=== PATIENT | female | born 1945 | race Caucasian/White ===

== ENCOUNTER 2017-01-04 12:22 | Inpatient (IN) | payer OTHER, MEDICARE ==
[~2017-01-04] VITALS: Ht 165.1 cm; Wt 72.9 kg
[~2017-01-04 12:22] MED LIST: ASPIRIN81 MG PO; LIPITOR10 MG PO; LISINOPRIL5 MG PO; PLAVIX75 MG PO; PROTONIX40 MG PO
[2017-01-04 14:05] LABS: BASOPHILS 0.1 % (0-2); EOSINOPHILS 0.6 % (0-7); HEMOGLOBIN 8.1 g/dL (12-16); IMMATURE GRANULOCYTES 0.1 % (0-5); LYMPHOCYTES 13.6 % (15-50); MCH 23.1 pg (26.0-34.0); MCV 77.1 fL (80.0-100.0); MEAN PLATELET VOLUME 9.4 fL (7.4-10.4); MONOCYTES 5.1 % (2-11); NEUTROPHILS 80.5 % (40-80); PLATELET COUNT 233 10x3/uL (130-400); RDW 15.7 % (11.5-14.5); WBC 8.1 10x3/uL (4.8-10.8)
[2017-01-04 14:18] LABS: ALBUMIN 3.8 g/dL (3.4-5.0); ALKALINE PHOSPHATASE 66 U/L (46-116); ALT (SGPT) 17 U/L (10-68); BILIRUBIN - TOTAL 0.35 mg/dL (0.2-1.3); CALC OSMOLALITY 266 mosm/kg (275-300); CALCIUM 8.6 mg/dL (8.5-10.1); CARBON DIOXIDE 29.5 mmol/L (21.0-32.0); CHLORIDE - SERUM 99 mmol/L (98-107); CREATININE - SERUM 0.6 mg/dL (0.6-1.3); GLUCOSE 97 mg/dL (74-106); POTASSIUM - SERUM 3.7 mmol/L (3.5-5.1); PROTEIN - SERUM 7.1 g/dL (6.4-8.2); SODIUM 134 mmol/L (136-145); UREA NITROGEN 10 mg/dL (7-18); eGFR NON AFRICAN AMERICAN > 90 mL/min (90-120)
--- NOTE | 2017-01-04 15:00 | NUR ---
PT REC'D TO ROOM VIA STRETCHER. TRANSFERED OVER TO BED X3 ASSIST FROM STAFF. REPOSITIONED UP IN BED. AAOX4. RATING CURRENT PAIN IN L LEG 5/10. ASKING FOR PAIN MEDICATION. STATED SHE HAD JUST RECEIVED SOME IN THE ER, BUT SHE COULD HAVE SOME IN AN HOUR. PT STATES SHE UNDERSTANDS. PIV TO R FA FREE OF REDNESS AND SWELLING. PATENT. 1CM SKIN TEAR TO R FA. NO REDNESS OR SWELLING NOTED. SKIN OTHERWISE CDI. REGULAR HEART RATE AND RHYTHM. LUNG SOUNDS CLEAR AND EQUAL BILAT. FAMILY AT BEDSIDE. BED LOW, CALLL LIGHT IN REACH, DENEIS NEEDS. CPOC.
[2017-01-04 15:45] VITALS: Ht 165.1 cm; Wt 72.9 kg
--- NOTE | 2017-01-04 16:00 | NUR ---
16FR PETERSON CATHETER INSERTED AT THIS TIME USING STERILE TECHNIQUE. IMMEDIATE RETURN OF 300CC'S OF CLEAR YELLOW URINE. SPECIMEN OBTAINED AND SENT TO LAB. L ARM PLACED IN SLING. INCENTIVE SPIROMETER TAUGHT AT THIS TIME. PT ABLE TO RETURN DEMONSTRATION AND PULL 1250. BED LOW, CALL LIGHT IN REACH, DENIES NEEDS. CPOC.
[2017-01-04 16:25] LABS: APPEARANCE CLEAR (CLEAR); BILIRUBIN NEGATIVE (NEGATIVE); COLOR YELLOW (YELLOW); GLUCOSE NEGATIVE (NEGATIVE); KETONE SMALL mg/dL (NEGATIVE); LEUKOCYTE ESTERASE NEGATIVE (NEGATIVE); NITRITE NEGATIVE (NEGATIVE); PH 5.5 (5.0-6.0); PROTEIN NEGATIVE (NEGATIVE); SPECIFIC GRAVITY 1.015 (1.005-1.020); UROBILINOGEN NORMAL (NORMAL)
[2017-01-04 20:00] VITALS: BP 113/48
--- NOTE | 2017-01-04 22:46 | NUR ---
REC'D LYING IN BED. NO DISTRESS NOTED. ALERT AND ORIENTED X4. REPORTED PAIN OF 3/10. DENIED FURTHER NEEDS AT THIS TIME. INSTRUCTED TO CALL IF NEEDED ANYTHING. VERBALIZED UNDERSTANDING. WILL CONT TO MONITOR. IS AT BEDSIDE.
[2017-01-05] VITALS (16 sets, daily range): BP systolic 101–139; BP diastolic 36–78
[2017-01-05 05:16] LABS: BASOPHILS 0.2 % (0-2); EOSINOPHILS 2.3 % (0-7); HEMATOCRIT 22.6 % (36.0-48.0); IMMATURE GRANULOCYTES 0.2 % (0-5); LYMPHOCYTES 15.2 % (15-50); MCH 22.7 pg (26.0-34.0); MCHC 29.6 g/dL (31.0-37.0); MCV 76.6 fL (80.0-100.0); MEAN PLATELET VOLUME 9.4 fL (7.4-10.4); MONOCYTES 4.6 % (2-11); NEUTROPHILS 77.5 % (40-80); PLATELET COUNT 194 10x3/uL (130-400); RBC 2.95 10x6/uL (4.00-5.40); RDW 15.8 % (11.5-14.5); WBC 6.6 10x3/uL (4.8-10.8)
[2017-01-05 05:18] LABS: HEMOGLOBIN 6.7 g/dL (12-16)
[2017-01-05 05:40] LABS: % SATURATION 12 % (15-55); IRON 45 ug/dl (35-150); TOTAL IRON BIND CAPACITY 370 ug/dl (260-445); UNSAT IRON BIND CAPACITY 325 ug/dl (150-375)
[2017-01-05 05:53] LABS: CALC OSMOLALITY 266 mosm/kg (275-300); CARBON DIOXIDE 25.2 mmol/L (21.0-32.0); CHLORIDE - SERUM 102 mmol/L (98-107); CREATININE - SERUM 0.5 mg/dL (0.6-1.3); FERRITIN 11 ng/mL (3-244); GLUCOSE 110 mg/dL (74-106); SODIUM 134 mmol/L (136-145); UREA NITROGEN 7 mg/dL (7-18); eGFR NON AFRICAN AMERICAN > 90 mL/min (90-120)
--- NOTE | 2017-01-05 07:00 | NUR ---
PT REC'D FROM JOSE GUADALUPE THAKKAR. RESTING IN BED WITH EYES CLOSED. EASILY AROUSED. AAOX4. RATING CURRENT PAIN TO L ARM AND L LEG 3/10. DENIES NEED FOR PAIN MEDICATION AT THIS TIME. NO BRUISING NOTED TO L SIDE OF BODY. L ARM IN SLING. PETERSON CATHETER IN PLACE DRAINING CLEAR YELLOW URINE TO GRAVITY. PIV TO R FA FREE OF REDNESS AND SWELLING. BED LOW, CALL LIGHT IN REACH, DENIES NEEDS. CPOC.
--- NOTE | 2017-01-05 08:15 | NUR ---
CONSENTS TO RECEIVE BLOOD AND BLOOD PRODUCTS OBTAINED AT THIS TIME.
--- NOTE | 2017-01-05 10:30 | NUR ---
1ST UNIT OF PRBC'S STARTED PER ORDERS TO PIV IN R FA. VSS. WILL MONITOR FOR FIRST 15 MINUTES.
--- NOTE | 2017-01-05 10:52 | NUR ---
PATIENT ALERT IN BED. NO SIGNS OF DISTRESS NOTED. SIDE RAILS UP X2. BED IN LOW POSITION. CALL LIGHT IN REACH.
--- NOTE | 2017-01-05 11:52 | NUR ---
PT RESTING IN BED WITH EYES CLOSED. DAUGHTER AT BEDSIDE. VSS. 1ST UNIT OF PRBC'S INFUSING AT THIS TIME. BED LOW, CALL LIGHT IN REACH, DENIES NEEDS. CPOC.
--- NOTE | 2017-01-05 14:00 | NUR ---
FIRST UNIT OF PRBC'S FINISHED. SWITCHED TO NORMAL SALINE TO FLUSH BLOOD FROM REST OF TUBING. VSS. BED LOW, CALL LIGHT IN REACH, DENIES NEEDS. CPOC.
--- NOTE | 2017-01-05 19:37 | NUR ---
PT IS LYING IN BED, BLOOD IS COMPLETE AND FLUSH IS RUNNING, PT EYES ARE CLOSED EVEN RISE AND FALL OF CHESTNO SIGNS OF DISCOMFORTNO NEEDS AT THIS TIMEBED IN LOW POSITION CALL LIGHT IN REACH
[2017-01-06] VITALS (22 sets, daily range): BP systolic 131–187; BP diastolic 47–87
--- NOTE | 2017-01-06 01:45 | NUR ---
NOTIFIED BY GUEST AT PATIENT'S BEDSIDE THAT THE PT WAS CONCERNED ABOUT HER IV. NO SWELLING OR REDNESS NOTED, IV IS PATENT, AND THE PT STATED SHE IS NOT HAVING PAIN AT THE SITE. I ENCOURAGED THE PATIENT TO CALL IF SHE HAS FUTHER NEEDS OR ANY OTHER CONCERNS.
--- NOTE | 2017-01-06 07:07 | NUR ---
REPORT RECEIVED FROM CUSHION FORMER NURSE. CALL LIGHT IN REACH.
--- NOTE | 2017-01-06 08:30 | NUR ---
ASSESSMENT COMPLETED. BED ALARM ON. IN ROOM. CALL LIGHT IN REACH. WILL CONTINUE WITH PLAN OF CARE.
--- NOTE | 2017-01-06 09:51 | NUR ---
1ST UNIT PRBC INFUSION STARTED AT 100 CC/HR VIA PUMP. VSS. FAMILY AT BEDSIDE.
[2017-01-06 09:55] LABS: ALBUMIN 2.9 g/dL (3.4-5.0); ALKALINE PHOSPHATASE 56 U/L (46-116); ALT (SGPT) 12 U/L (10-68); CALC OSMOLALITY 270 mosm/kg (275-300); CHLORIDE - SERUM 103 mmol/L (98-107); CREATININE - SERUM 0.5 mg/dL (0.6-1.3); GLUCOSE 89 mg/dL (74-106); POTASSIUM - SERUM 3.3 mmol/L (3.5-5.1); SODIUM 137 mmol/L (136-145); UREA NITROGEN 8 mg/dL (7-18); eGFR NON AFRICAN AMERICAN > 90 mL/min (90-120)
--- NOTE | 2017-01-06 10:14 | NUR ---
Patient Name: DORA LARA Admission Status: ER Accout number: [id number] Admission Date: 01-04-2017 : 1945 Admission Diagnosis: Attending: SADAF Current LOS: 2 Anticipated DC Date: Planned Disposition: Home Primary Insurance: [employer] PPO Discharge Planning Comments: CM met with patient to assess discharge planning needs. Patient lives independently with her friend, Tobin Connor. Tobin will be the one to drive the patient home at discharge. Patient is currently off work from open heart surgery that she had in Mar 2016. Patient would like to go to inpatient rehab after surgery. Patient has a bed side commode and a wheelchair at home. CM will continue to follow and assist as needed. PCP: [facility] on [address] Tobin Connor (friend) Dora Palafox (daughter) [phone] Evp: Savita Méndez * Is the patient Alert and Oriented? Yes 0 * How many steps to enter\exit or inside your home? 0 0 * PCP BEN 0 * [facility] 0 * Preadmission Environment Home with Family 0 * ADLs Independent 0 * Equipment Bedside Commode Wheelchair 0 * List name and contact numbers for known caregivers / representatives who currently or will assist patient after discharge: OTBIN CONNOR (FRIEND) DORA PALAFOX (DAUGHTER) 0 * Community resources currently utilized None 0 * Additional services required to return to the preadmission environment? No 0 * Can the patient safely return to the preadmission environment? Yes 0 * Has this patient been hospitalized within the prior 30 days at any hospital? No 0 Grand Total: 0
[2017-01-06 10:16] LABS: BASOPHILS 0.1 % (0-2); EOSINOPHILS 3.8 % (0-7); HEMATOCRIT 32.1 % (36.0-48.0); IMMATURE GRANULOCYTES 0.1 % (0-5); LYMPHOCYTES 18.3 % (15-50); MCH 25.1 pg (26.0-34.0); MCHC 31.2 g/dL (31.0-37.0); MCV 80.5 fL (80.0-100.0); MEAN PLATELET VOLUME 9.8 fL (7.4-10.4); NEUTROPHILS 71.7 % (40-80); PLATELET COUNT 176 10x3/uL (130-400); RBC 3.99 10x6/uL (4.00-5.40); RDW 16.8 % (11.5-14.5); WBC 7.9 10x3/uL (4.8-10.8)
--- NOTE | 2017-01-06 10:32 | NUR ---
REQUESTING PAIN MEDS. MORPHINE 2 MG SIVP. IN ROOM. BED ALARM ON. CALL LIGHT IN REACH.
--- NOTE | 2017-01-06 10:47 | NUR ---
C/O ITCHING. BENADRYL 25 MG SIVP. CALL LIGHT IN REACH.
--- NOTE | 2017-01-06 12:36 | NUR ---
DR. CONTRERAS IN ROOM TO SEE PATIENT AT THIS TIME.
--- NOTE | 2017-01-06 13:10 | NUR ---
PRBC UNIT 1 COMPLETED AND NOW FLUSHING. WILL START 2ND UNIT HERE SHORTLY.
--- NOTE | 2017-01-06 14:25 | NUR ---
C/O PAIN OF 7. MORPHINE SIVP. FAMILY IN ROOM. CALL LIGHT IN REACH.
--- NOTE | 2017-01-06 14:50 | NUR ---
2ND UNIT OF PRBC INITIATED PER ROGERIO JOHNSON.
--- NOTE | 2017-01-06 15:57 | NUR ---
RESTING WITH EYES CLOSED. RESP EVEN AND UNLABORED. CALL LIGHT IN REACH.
--- NOTE | 2017-01-06 16:15 | NUR ---
Rehab Prescreening Consult recieved and the chart has been reviewed. This patient is scheduled for surgery today. Her insurance is [employer] which will require a preauthorization for rehab. Post op she will need a PT and an OT eval to submit to [facility] for their review and approval. [facility] has requested this clinical information be faxed to them within 48 hrs or no later than 01/08/17. Ref# [id number] This information has been given to the CM Nica Méndez. Coco Villatoro RN Clinical Liaison, Rehab
--- NOTE | 2017-01-06 18:33 | NUR ---
LASIX AND BENADRYL IVP. NO CHANGES IN INITIAL ASSESSMENT. BED ALARM ON. FAMILY AT BEDSIDE. CALL LIGHT IN REACH. WILL CONTINUE WITH PLAN OF CARE.
--- NOTE | 2017-01-06 19:45 | NUR ---
DR DORANTES CAME TO PT'S ROOM AND TOLD PT'S THAT SURGERY HAS BEEN POSTPONED UNTIL 01/07/17. TOLD PT SHE CAN EAT UNTIL MIDNIGHT AND THEN NPO UNTIL AFTER SURGERY. PT BED IN LOW POSITION CALL LIGHT WITHIN REACH
--- NOTE | 2017-01-07 02:00 | NUR ---
PT IN BED WITH NO DISTRESS. RESPIRATIONS EVEN AND UNLABORED. SIDE RAILS X 2. BED LOW. CALL LIGHT IN REACH.
[2017-01-07 04:00] VITALS: BP 141/59
--- NOTE | 2017-01-07 07:15 | NUR ---
REPORT RECEIVED FROM STATION AGENT NURSE. CALL LIGHT IN REACH.
[2017-01-07 08:17] LABS: FOLATE (FOLIC ACID) - SERUM 7.9 ng/mL (>3.0)
[2017-01-07 08:42] VITALS: BP 182/62
[2017-01-07 09:00] LABS: MCH 26.2 pg (26.0-34.0); MCHC 32.2 g/dL (31.0-37.0); MCV 81.3 fL (80.0-100.0); MEAN PLATELET VOLUME 9.4 fL (7.4-10.4); RDW 16.6 % (11.5-14.5); WBC 7.7 10x3/uL (4.8-10.8)
[2017-01-07 09:06] LABS: HEMATOCRIT 40.1 % (36.0-48.0); HEMOGLOBIN 12.9 g/dL (12-16); RBC 4.93 10x6/uL (4.00-5.40)
[2017-01-07 09:09] LABS: CALC OSMOLALITY 269 mosm/kg (275-300); CALCIUM 8.1 mg/dL (8.5-10.1); CARBON DIOXIDE 25.7 mmol/L (21.0-32.0); CHLORIDE - SERUM 102 mmol/L (98-107); CREATININE - SERUM 0.6 mg/dL (0.6-1.3); GLUCOSE 81 mg/dL (74-106); POTASSIUM - SERUM 3.2 mmol/L (3.5-5.1); SODIUM 136 mmol/L (136-145); eGFR NON AFRICAN AMERICAN > 90 mL/min (90-120)
[2017-01-07 09:12] LABS: UREA NITROGEN 11 mg/dL (7-18)
--- NOTE | 2017-01-07 09:21 | NUR ---
ASSESSMENT COMPLETED. REQUESTING MORE PAIN MEDS. MORPHINE 4 MG SIVP. FAMILY IN ROOM. CALL LIGHT IN REACH. WILL CONTINUE WITH PLAN OF CARE.
--- NOTE | 2017-01-07 11:15 | NUR ---
DAUGHTER STATES THAT IF THE PATIENT DOES NOT HAVE SURGERY WITHIN THE NEXT HOUR, SHE WANTS TO TAKE HER MOTHER TO ANOTHER HOSPITAL. SPOKE WITH SECONDARY TEACHER WHOM SPOKE WITH CRYSTAL,RN, MORGUE ATTENDANT. CRYSTAL CALLED AND SPOKE WITH DAUGHTER.
--- NOTE | 2017-01-07 11:20 | NUR ---
PETERSON CATH CARE PER ROOMING HOUSE KEEPER.
--- NOTE | 2017-01-07 11:42 | NUR ---
PREOP MEDS ADMINISTERED PER ROGERIO OLIVO.
--- NOTE | 2017-01-07 11:43 | NUR ---
PRE-OP MEDICATIONS GIVEN TO PATIENT, REPOSITIONED FOR COMFORT. CALL IN REACH.
--- NOTE | 2017-01-07 12:05 | NUR ---
TO OR VIA BED
--- NOTE | 2017-01-07 14:49 | NUR ---
STILL IN OR AT THIS TIME.
--- NOTE | 2017-01-07 16:55 | NUR ---
IN RECOVERY AT THIS TIME.
--- NOTE | 2017-01-07 17:46 | NUR ---
STARTED NEW IV RIGHT WRIST 20 GAUGE TO INFUSE 0.9 % NS AND 2U PRBC'S. INFUSION STARTED AT 1730. SEE TRANSFUSION SHEET FOR VITALS.
[2017-01-07 18:07] VITALS: BP 151/59
--- NOTE | 2017-01-07 18:10 | NUR ---
RECIEVED FROM PACU PER BED. IMMOBLIZER NOTED TO LEFT ARM/SHOULDER REGION. BLOOD INFUSING TO RIGHT HAND WITH LR INFUSING KVO TO RIGHT FOREARM. PETERSON NOTED TO DRAINAGE OF LIGHT TREVIN, DRESSING NOTED TO LEFT SHOULDER CLEAN DRY AND INTACT. SCD APPLIED TO BILAT LOWER LEGS AND ON. CALL LIGHT IN REACH. FAMILY AT BEDSIDE
--- NOTE | 2017-01-07 19:27 | NUR ---
PT IS LYING IN BED VISITING W/ SPOUSE, STATED PAIN LEVEL IS AT 10 IN LEG, NO ORDERS FOR PAIN MANAGEMENT IN EMAR [address] DR DORANTES, BED IN LOW POSITION CALL LIGHT IN REACH
--- NOTE | 2017-01-08 02:00 | NUR ---
PT IN BED WITH NO DISTRESS. RESPIRATIONS EVEN AND UNLABORED. SIDE RAILS X 2. BED LOW. CALL LIGHT IN REACH.
[2017-01-08 04:00] VITALS: BP 161/60
[2017-01-08 05:39] LABS: BASOPHILS 0 % (0-2); EOSINOPHILS 0 % (0-7); HEMATOCRIT 39.4 % (36.0-48.0); HEMOGLOBIN 13.3 g/dL (12-16); IMMATURE GRANULOCYTES 0.1 % (0-5); LYMPHOCYTES 11.9 % (15-50); MCH 27.4 pg (26.0-34.0); MCHC 33.8 g/dL (31.0-37.0); MCV 81.2 fL (80.0-100.0); MEAN PLATELET VOLUME 9.6 fL (7.4-10.4); MONOCYTES 9.6 % (2-11); NEUTROPHILS 78.4 % (40-80); PLATELET COUNT 126 10x3/uL (130-400); RBC 4.85 10x6/uL (4.00-5.40); RDW 16.1 % (11.5-14.5); WBC 6.8 10x3/uL (4.8-10.8)
[2017-01-08 05:57] LABS: ALKALINE PHOSPHATASE 46 U/L (46-116); ALT (SGPT) 10 U/L (10-68); CALC OSMOLALITY 277 mosm/kg (275-300); CALCIUM 8.2 mg/dL (8.5-10.1); CARBON DIOXIDE 22.1 mmol/L (21.0-32.0); CHLORIDE - SERUM 104 mmol/L (98-107); CREATININE - SERUM 0.5 mg/dL (0.6-1.3); GLUCOSE 119 mg/dL (74-106); SODIUM 139 mmol/L (136-145); UREA NITROGEN 9 mg/dL (7-18); eGFR NON AFRICAN AMERICAN > 90 mL/min (90-120)
[2017-01-08 06:12] LABS: POTASSIUM - SERUM 3.8 mmol/L (3.5-5.1)
--- NOTE | 2017-01-08 07:20 | NUR ---
REPORT RECEIVED FROM GARMENT PARTS CUTTER HAND NURSE. CALL LIGHT IN REACH.
--- NOTE | 2017-01-08 07:30 | NUR ---
IV TO RIGHT ARM WITH SWELLING AND REDNESS. DC'D WITH TIP INTACT. RESITED TO RIGHT FOREARM WITH 22 GA X1 STICK.
--- NOTE | 2017-01-08 07:50 | NUR ---
REPORT RECEIVED FROM ILLUSIONIST NURSE. CALL LIGHT IN REACH.
[2017-01-08 08:38] VITALS: BP 108/59
--- NOTE | 2017-01-08 09:15 | NUR ---
PATIENT ALERT IN HIGH SMITH POSITION. NO SIGNS OF DISTRESS NOTED. GUEST AT BEDSIDE. SIDE RAILS UP X2. BED IN LOW POSITION. CALL LIGHT IN REACH.
--- NOTE | 2017-01-08 09:33 | NUR ---
ASSESSMENT COMPLETED. TORADOL IVP PER C/O PAIN OF 10. ALSO INSTRUCTED PATIENTTO USE BAKERY DECORATOR WHEN IN PAIN. VERBALIZED UNDERSTANDING. IRON PILL PO. IV TUBING CHANGED PER HOSPITAL POLICY. ICE PACKS FILLED AND PLACED TO LEFT SHOULDER AND LEFT HIP. SCD TO RLE. BED ALARM ON. O2 TAKEN OFF AND O2 SAT WAS 95% ON ROOM AIR 10 MINUTES AFTERWARDS. WAITING ON PHYSICAL THERAPY. CALL LIGHT IN REACH. WILL CONTINUE WITH PLAN OF CARE.
--- NOTE | 2017-01-08 10:44 | NUR ---
STATES HER PAIN IS NOW DOWN TO A 1. CALL LIGHT IN REACH.
--- NOTE | 2017-01-08 12:07 | NUR ---
WAS REQUESTING BENADRYL BUT NOW WOULD LIKE TO WAIT. IN CHAIR PER PT. TOLERATING WELL. CALL LIGHT IN REACH.
--- NOTE | 2017-01-08 12:46 | NUR ---
ZOFRAN 4 MG SIVP. WILL GIVE MIRALAX AND COLACE AFTER NAUSEA SUBSIDES. WILL GIVE SUPPOSITORY AFTER PATIENT GETS BACK IN BED.
[2017-01-08 12:57] VITALS: BP 128/67
--- NOTE | 2017-01-08 14:05 | NUR ---
STILL WAITING FOR PATIENT TO AGREE WITH SUPPOSITORY AND LAXATIVES.
--- NOTE | 2017-01-08 15:22 | NUR ---
Rehab Note- The patient is post op day #1. She has had her OT eval completed awaiting PT eval to send to [facility] for [facility] for acutte rehab stay. Will continue ot follow the patient at this time. Alma Delia Garcia RN Clinical Liaison, [facility] Rehab
[2017-01-08 16:20] VITALS: BP 92/57
--- NOTE | 2017-01-08 16:22 | NUR ---
MIRALAX AND COLACE PO. DULCOLAX SUPPOSITORY. PLACED ON BEDPAN WITH ASSISTANCE FROM NURSE KETTLE TENDER. CALL LIGHT IN REACH.
--- NOTE | 2017-01-08 16:24 | NUR ---
Rehab Note- Faxed clinicals to [facility] at [phone]. Will await for determination on an acute rehab stay authorization. Will continue to follow the patient at this time. Thank you for this referral! Alma Delia Garcia RN Clinical Liaison, [facility] Rehab
--- NOTE | 2017-01-08 18:07 | NUR ---
STILL NO BOWEL MOVEMENT AFTER SUPPOSITORY. WILL GIVE WARM PRUNE JUICE AND SPRITE. REPOSITIONED FOR COMFORT. ICE TO SHOULDER AND HIP. NO OTHER CHANGES IN INITIAL ASSESSMENT. SCD TO RLE. BED ALARM ON. CALL LIGHT IN REACH. WILL CONTINUE WITH PLAN OF CARE.
--- NOTE | 2017-01-08 19:11 | NUR ---
STATES SHE SPIT UP SOME BLOOD. LOOKED AT [facility] AND THERE WERE 2 SPECKS OF BLOOD ON IT.
[2017-01-08 20:00] VITALS: BP 120/60
[2017-01-09] VITALS: BP 131/74
--- NOTE | 2017-01-09 02:00 | NUR ---
PT RESTING WITH EYES CLOSED AND NO VISIBLE SIGNS OF DISTRESS. BED IN LOWEST POSITION AND CALL LIGHT WITHIN REACH.
[2017-01-09 04:00] VITALS: BP 115/57
[2017-01-09 05:57] LABS: BASOPHILS 0.1 % (0-2); HEMATOCRIT 40.6 % (36.0-48.0); HEMOGLOBIN 13.4 g/dL (12-16); IMMATURE GRANULOCYTES 0.1 % (0-5); LYMPHOCYTES 16.9 % (15-50); MCH 27.2 pg (26.0-34.0); MCV 82.4 fL (80.0-100.0); MEAN PLATELET VOLUME 10.1 fL (7.4-10.4); MONOCYTES 7.1 % (2-11); NEUTROPHILS 70.8 % (40-80); PLATELET COUNT 145 10x3/uL (130-400); RBC 4.93 10x6/uL (4.00-5.40); RDW 17.2 % (11.5-14.5); WBC 7.4 10x3/uL (4.8-10.8)
[2017-01-09 06:19] LABS: ALBUMIN 2.2 g/dL (3.4-5.0); ALKALINE PHOSPHATASE 55 U/L (46-116); ALT (SGPT) 12 U/L (10-68); BILIRUBIN - TOTAL 1.03 mg/dL (0.2-1.3); CALCIUM 7.9 mg/dL (8.5-10.1); CARBON DIOXIDE 27.5 mmol/L (21.0-32.0); CHLORIDE - SERUM 101 mmol/L (98-107); CREATININE - SERUM 0.5 mg/dL (0.6-1.3); GLUCOSE 101 mg/dL (74-106); POTASSIUM - SERUM 3.6 mmol/L (3.5-5.1); PROTEIN - SERUM 5.8 g/dL (6.4-8.2); SODIUM 136 mmol/L (136-145); eGFR NON AFRICAN AMERICAN > 90 mL/min (90-120)
[2017-01-09 06:20] LABS: CALC OSMOLALITY 271 mosm/kg (275-300); UREA NITROGEN 12 mg/dL (7-18)
--- NOTE | 2017-01-09 08:00 | NUR ---
LYING IN BED,WITHOUT DISTRESS.DENIES NEEDS.CALL LIGHT IN REACH
[2017-01-09] MEDS ORDERED: ELIQUIS2.5 MG PO (08:17)
[2017-01-09 08:26] VITALS: BP 115/55
[2017-01-09 12:57] VITALS: BP 113/70
[2017-01-09 16:11] VITALS: BP 105/51
--- NOTE | 2017-01-09 19:15 | NUR ---
PT IS LYING IN BED VISITING WITH FAMILY, PT STATED THAT LAST NIGHT SHE FELT IF SHE HAD A PABIC ATTACK, WAS UNABLE TO BREATHE AND HAD LOST CALL LIGHT, REINFORCED THAT I WILL CHECK ON HER MORE OFTEN TO MAKE SURE SHE FELT COMFORTABLE AND WILL LEAVE DOOR OPEN. PT BED IN LOW POSITION, CALL LIGHT IN REACH
[2017-01-09 20:00] VITALS: BP 121/46; BP 123/73
[2017-01-10] VITALS: BP 158/68
--- NOTE | 2017-01-10 01:42 | NUR ---
PT SLEEPING. RESP EVEN, UNLABORED. CROZE CUTTER FOR PAIN CONTROL. ARM IN SLING/IMMOBILIZER. CONTINUE LIEUTENANT FIRE FIGHTER'S PLAN OF CARE.
[2017-01-10 04:00] VITALS: BP 123/58
[2017-01-10 06:43] LABS: BASOPHILS 0.1 % (0-2); EOSINOPHILS 5.9 % (0-7); HEMATOCRIT 40.9 % (36.0-48.0); HEMOGLOBIN 13.3 g/dL (12-16); IMMATURE GRANULOCYTES 0.1 % (0-5); LYMPHOCYTES 21.7 % (15-50); MCH 27.4 pg (26.0-34.0); MCHC 32.5 g/dL (31.0-37.0); MCV 84.2 fL (80.0-100.0); MONOCYTES 7.5 % (2-11); NEUTROPHILS 64.7 % (40-80); PLATELET COUNT 150 10x3/uL (130-400); RBC 4.86 10x6/uL (4.00-5.40); WBC 6.8 10x3/uL (4.8-10.8)
[2017-01-10 07:05] LABS: ALBUMIN 2.1 g/dL (3.4-5.0); ALKALINE PHOSPHATASE 56 U/L (46-116); ALT (SGPT) 12 U/L (10-68); BILIRUBIN - TOTAL 0.89 mg/dL (0.2-1.3); CALC OSMOLALITY 268 mosm/kg (275-300); CALCIUM 8.2 mg/dL (8.5-10.1); CARBON DIOXIDE 29.7 mmol/L (21.0-32.0); CHLORIDE - SERUM 101 mmol/L (98-107); CREATININE - SERUM 0.5 mg/dL (0.6-1.3); GLUCOSE 95 mg/dL (74-106); POTASSIUM - SERUM 3.7 mmol/L (3.5-5.1); PROTEIN - SERUM 5.8 g/dL (6.4-8.2); SODIUM 135 mmol/L (136-145); UREA NITROGEN 9 mg/dL (7-18); eGFR NON AFRICAN AMERICAN > 90 mL/min (90-120)
[2017-01-10 08:54] VITALS: BP 159/78
--- NOTE | 2017-01-10 09:11 | NUR ---
SCHEDULED MEDICATIONS ADMINISTERED AT THIS TIME. ASSESSMENT PERFORMED PER FLOWSHEET. SCD'S AND BED ALARM ON. PETERSON D/C WITH CATH TIP INTACT AND MARKING MACHINE OPERATOR D/C. DENIES FURTHER NEEDS. CALL LIGHT IN REACH. RESPIRATIONS EVEN AND NON LABORED. WILL CONTINUE WITH PLAN OF CARE.
--- NOTE | 2017-01-10 10:13 | NUR ---
RECEIVED APPROVAL FOR IN PATIENT REHAB TODAY, PATIENT WILL BE DISCHARGING TO [facility] LATER TODAY. GATO MOCTEZUMA () NOTIFIED.
--- NOTE | 2017-01-10 10:47 | NUR ---
Recieved a fax from Deedee Michaels with [facility]. This patient is authorized for IRF 7 days 01/10/17 thru 01/16/17 Auth# [id number]. Clinical U/D due on 01/17/17 to Christianne Doty RN X [phone] . She will be accepted today to the IRF. The CM Sharon Agarwal RN has been made aware. Coco Villatoro RN Clinical Liaison, Rehab
--- NOTE | 2017-01-10 11:30 | NUR ---
UP IN CHAIR AT THIS TIME. PT TO D/C TO INPATIENT REHAB TODAY PER ORDER.
[2017-01-10] MEDS ORDERED: MIRALAX17 GM PO (11:55)
[2017-01-10] MEDS ORDERED: COLACE100 MG PO (12:00)
[2017-01-10] MEDS ORDERED: ONDANSETRON4 MG/2 M3 IV (12:00)
[2017-01-10] MEDS ORDERED: PROTONIX40 MG PO (12:00)
[2017-01-10] MEDS ORDERED: FERROUS SULFAT325 MG PO (12:03)
[2017-01-10] MEDS ORDERED: BENADRYL INJ50 MG/ML IV (12:03)
[2017-01-10 13:03] VITALS: BP 97/59
--- NOTE | 2017-01-10 15:07 | NUR ---
This patient has [employer] MCR listed as her secondary insurance on her face sheet. Called Patrick at [facility] to see if a preauth was required for IRF if the primary [employer] had authorized the patient for IRF. Patrick says a preauth is required even if [employer] is the secondary insurance. Called Ursula with [employer] and initiated a preauth for IRF Ref# [id number]. Spoke to the patient with Nica Méndez RN CM present, explained the need for a second auth with [employer] and a descision would probably not be made before Friday. The patient states she does not want [employer] notified or billed for her rehab stay because she is in the process of droping them. She says she plans to continue working and does not want to be paying for Medicare too. She understands [employer] will be her only payor source and there could possibly be a co-pay. This was all discussed in the presence of the patient, myself and the CM Nica Méndez. I called Keturah Castañeda director of business, and Stephanie Armas rehab PD and made them aware of the patient's choice. Coco Villatoro RN Clinical Liaison, Rehab choice.
--- NOTE | 2017-01-10 15:49 | NUR ---
PRN PERCOCET ADMINISTERED FOR PAIN 6/10 AT THIS TIME.
--- NOTE | 2017-01-10 16:45 | NUR ---
DRESSING TO LEFT SHOULDER AND LEFT HIP CHANGED AT THIS TIME USING STERILE TECNIQUE. PT TOLERATED WITHOUT COMPLAINTS. CALL LIGHT IN REACH, WILL CONTINUE WITH PLAN OF CARE.
--- NOTE | 2017-01-10 17:35 | NUR ---
REPORT CALLED TO ROGERIO PABLO IN REHAB AT THIS TIME.
== END 2017-01-10 18:45 | DRG 470 ==
LOC: D.ER 12:22 → D.MS 13:44
PROVIDERS: Family Medicine; Orthopaedic Surgery; ADMIT Family Medicine
PROC: 0SRS0JZ Replacement of Left Hip Joint, Femoral Surface with Synthetic Substitute, Open Approach (ICD-10-PCS; principal; 2017-01-07 11:30)
PROC: 0PSD04Z Reposition Left Humeral Head with Internal Fixation Device, Open Approach (ICD-10-PCS; 2017-01-07 11:30)
DX: S72.002A Fracture of unspecified part of neck of left femur, initial encounter for closed fracture (principal); S42.292A Other displaced fracture of upper end of left humerus, initial encounter for closed fracture; S42.212A Unspecified displaced fracture of surgical neck of left humerus, initial encounter for closed fracture; W10.8XXA Fall (on) (from) other stairs and steps, initial encounter; Z86.73 Personal history of transient ischemic attack (TIA), and cerebral infarction without residual deficits; I10 Essential (primary) hypertension; K59.00 Constipation, unspecified; D50.9 Iron deficiency anemia, unspecified; R19.5 Other fecal abnormalities

== ENCOUNTER 2017-01-10 19:29 | Inpatient (IN) | payer OTHER, MEDICARE ==
[~2017-01-10] VITALS: Ht 165.1 cm; Wt 61.2 kg
--- NOTE | 2017-01-10 18:45 | NUR ---
PT BROUGHT TO UNIT VIA WHEELCHAIR BY HOSPITAL STAFF.
[~2017-01-10 19:29] MED LIST changes: +BENADRYL INJ50 MG/ML IV; +COLACE100 MG PO; +ELIQUIS2.5 MG PO; +FERROUS SULFAT325 MG PO; +MIRALAX17 GM PO; +ONDANSETRON4 MG/2 M3 IV
[2017-01-10 19:30] VITALS: BP 136/75
--- NOTE | 2017-01-10 20:00 | NUR ---
PT IN BED WITH HOB UP FOR COMFORT. WATCHING TV. FAMILY AT BEDSIDE. LEFT ARM IMMOBILIZER. NO O2. RIGHT FA SALINE LOC. BED IN LOWEST POSITION AND CALL LIGHT WITHIN REACH.
--- NOTE | 2017-01-11 | NUR ---
RN TO DO ASSESSMENT.
[2017-01-11 01:54] VITALS: BP 136/75; BMI 27.5
[2017-01-11 03:16] VITALS: BP 136/75; BMI 22.5
--- NOTE | 2017-01-11 04:00 | NUR ---
PT IN BED WITH HOB UP FOR COMFORT. WATCHING TV. BED IN LOWEST POSITION AND CALL LIGHT WITHIN REACH.
--- NOTE | 2017-01-11 04:56 | NUR ---
ASSISTED PT TO BEDSIDE COMMODE AND INTO RECLINER. CALL LIGHT WITHIN REACH.
--- NOTE | 2017-01-11 06:00 | NUR ---
PT UP WITH PT.
[2017-01-11 06:58] LABS: BASOPHILS 0.1 % (0-2); EOSINOPHILS 4.4 % (0-7); HEMATOCRIT 44.5 % (36.0-48.0); HEMOGLOBIN 14.6 g/dL (12-16); IMMATURE GRANULOCYTES 0.1 % (0-5); LYMPHOCYTES 16.3 % (15-50); MCH 27.7 pg (26.0-34.0); MCHC 32.8 g/dL (31.0-37.0); MCV 84.3 fL (80.0-100.0); MEAN PLATELET VOLUME 9.7 fL (7.4-10.4); MONOCYTES 7.3 % (2-11); NEUTROPHILS 71.8 % (40-80); PLATELET COUNT 168 10x3/uL (130-400); RBC 5.28 10x6/uL (4.00-5.40); RDW 17.9 % (11.5-14.5); WBC 7.1 10x3/uL (4.8-10.8)
[2017-01-11 07:12] LABS: CALC OSMOLALITY 271 mosm/kg (275-300); CALCIUM 8.8 mg/dL (8.5-10.1); CARBON DIOXIDE 30.9 mmol/L (21.0-32.0); CHLORIDE - SERUM 101 mmol/L (98-107); CREATININE - SERUM 0.6 mg/dL (0.6-1.3); GLUCOSE 119 mg/dL (74-106); POTASSIUM - SERUM 3.6 mmol/L (3.5-5.1); SODIUM 136 mmol/L (136-145); UREA NITROGEN 11 mg/dL (7-18); eGFR NON AFRICAN AMERICAN > 90 mL/min (90-120)
[2017-01-11 08:00] VITALS: BP 125/68
--- NOTE | 2017-01-11 08:00 | NUR ---
SHIFT ASSMT COMPLETED.SLING IN PLACE TO LT ARM.BREAKFAST GIVEN.CL IN REACH
[2017-01-11 09:52] VITALS: BMI 22.4
--- NOTE | 2017-01-11 12:00 | NUR ---
LUNCH GIVEN.CL IN REACH.REMAINS UP IN CHAIR;VISITING WITH FAMILY.
--- NOTE | 2017-01-11 19:21 | NUR ---
PT. IN BED WITH HOB UP FOR COMFORT AND VISITING WITH HER SPOUSE. NO VOICED NEEDS AT THIS TIME AND HER CALL LIGHT IS WITHIN REACH.
[2017-01-11 19:30] VITALS: BP 145/59
--- NOTE | 2017-01-11 19:30 | NUR ---
PT IN BED WITH HOB UP FOR COMFORT. WATCHING TV. AT BEDSIDE. ALERT & ORIENTED. PT STATES SHE IS NOT IN ANY PAIN RIGHT NOW. LEFT ARM IMMOBILIZER/SLING. BEDSIDE COMMODE NEEDED. PT STATES HER BACK IS ITCHING AND WOULD LIKE A BENADRYL WITH HER 2100 MEDS. RIGHT FA SALINE LOC. NO O2. BED IN LOWEST POSITION AND CALL LIGHT WITHIN REACH. BEDSIDE COMMODE EMPTIED. LEFT HUMERUS AND LEFT FEMUR FRACTURE.
--- NOTE | 2017-01-11 23:14 | NUR ---
ASSESSMENT COMPLETED AT 01/11/171999. DOCUMENTED ON WRONG DATE OF 01/10/171999.
--- NOTE | 2017-01-11 23:30 | NUR ---
PT IN BED WITH HOB UP FOR COMFORT. LEFT ARM IN IMMOBILIZER/SLING PROPED UNDER PILLOW. EYES CLOSED. RESP. EVEN. BED IN LOWEST POSITION AND CALL LIGHT WITHIN REACH.
--- NOTE | 2017-01-12 03:30 | NUR ---
PT LYING IN BED WITH HOB UP FOR COMFORT. WATCHING TV. BED IN LOWEST POSITION AND CALL LIGHT WITHIN REACH.
[2017-01-12 08:00] VITALS: BP 158/73
--- NOTE | 2017-01-12 08:00 | NUR ---
SHIFT ASSMT COMPLETED.BREAKFAST GIVEN.
--- NOTE | 2017-01-12 12:00 | NUR ---
LUNCH GIVEN.SITTING UP IN CHAIR.
--- NOTE | 2017-01-12 16:00 | NUR ---
RESTING QUIETLY.CL IN REACH.
--- NOTE | 2017-01-12 19:17 | NUR ---
PT. IN BED WITH HOB UP FOR COMFORT AND VISITING WITH SPOUSE. NO VOICED NEEDS AT THIS TIME AND HER CALL LIGHT IS WITHIN REACH.
[2017-01-12 19:30] VITALS: BP 139/68
--- NOTE | 2017-01-12 19:30 | NUR ---
PT IN BED WITH HOB UP FOR COMFORT. WATCHING TV. AT BEDSIDE. ALERT & ORIENTED. PT STATES SHE IS NOT IN ANY PAIN AT THIS TIME. LEFT ARM IN IMMOBILIZER/SLING. BEDSIDE COMMODE NEEDED. RIGHT FA SALINE LOC. NO O2. BED IN LOWEST POSITION AND CALL LIGHT WITHIN REACH.
--- NOTE | 2017-01-12 23:30 | NUR ---
PT IN BED WITH HOB UP FOR COMFORT. EYES CLOSED. CHEST RISING AND FALLING. BED IN LOWEST POSITION AND CALL LIGHT WITHIN REACH.
--- NOTE | 2017-01-13 03:54 | NUR ---
ASSISTED PT TO BATHROOM AND BACK TO BED.
[2017-01-13 05:40] LABS: BASOPHILS 0.3 % (0-2); EOSINOPHILS 6.5 % (0-7); HEMATOCRIT 42.7 % (36.0-48.0); HEMOGLOBIN 13.7 g/dL (12-16); IMMATURE GRANULOCYTES 0.3 % (0-5); LYMPHOCYTES 29.3 % (15-50); MCH 27.3 pg (26.0-34.0); MCHC 32.1 g/dL (31.0-37.0); MCV 85.1 fL (80.0-100.0); MEAN PLATELET VOLUME 10.2 fL (7.4-10.4); MONOCYTES 8.7 % (2-11); NEUTROPHILS 54.9 % (40-80); RBC 5.02 10x6/uL (4.00-5.40); RDW 18.3 % (11.5-14.5)
[2017-01-13 06:00] LABS: PLATELET COUNT 235 10x3/uL (130-400)
[2017-01-13 06:05] LABS: CALC OSMOLALITY 281 mosm/kg (275-300); CARBON DIOXIDE 30.5 mmol/L (21.0-32.0); CHLORIDE - SERUM 105 mmol/L (98-107); CREATININE - SERUM 0.6 mg/dL (0.6-1.3); GLUCOSE 97 mg/dL (74-106); POTASSIUM - SERUM 3.8 mmol/L (3.5-5.1); SODIUM 142 mmol/L (136-145); UREA NITROGEN 10 mg/dL (7-18); eGFR NON AFRICAN AMERICAN > 90 mL/min (90-120)
--- NOTE | 2017-01-13 08:01 | NUR ---
SITTING UP IN BED EATING BREAKFAST. LUE IN SLING. DENIES INCREASED PAIN. DSG TO LEFT SHOULDER IN PLACE
[2017-01-13 09:31] VITALS: BP 130/52
--- NOTE | 2017-01-13 12:30 | NUR ---
SITTING UP IN W/C IN HER ROOM EATING LUNCH. HAS VISITOR IN ROOM WITH PT. PAIN CONTROLLED WITH PAIN MEDS. MOD TO MAX ASST WITH ADL'S
--- NOTE | 2017-01-13 17:56 | NUR ---
EATING SUPPER IN ROOM. DENIES NEEDS OR C/O. CALL LIGHT IN REACH
--- NOTE | 2017-01-13 19:45 | NUR ---
PM ROUNDS MADE, PT VISITING WITH FAMILY, INFORMED PT THAT I WILL BE BACK LATER TO DO ASSESSMENT, PT VERBALIZES UNDERSTANDING, DENIES NEEDS AT THIS TIME, BED IN LOW POSITION, SIDE RAILS X 2, CALL LIGHT IN REACH
[2017-01-13 20:20] VITALS: BP 146/70
--- NOTE | 2017-01-13 20:20 | NUR ---
PT SCIENTIFIC INFORMATICS PROJECT LEADER LIGHT, PT UP TO BR VIA WC WITH ASSISTANCE, PT VOIDED BY SELF WITH NO DIFFICULTY, PT TO SINK TO WASH HANDS, PT BACK TO BED, PT POSITIONED REQUESTED, PILLOW UNDER LEFT ARM AND LEG, PT REQUESTS PAIN MED WHEN I COME BACK WITH OTHER MEDS, INFORMED PT THAT I WILL BRING IT, VS OBTAINED, ASSESSMENT PER FLOW SHEET, PT DENIES FURTHER NEEDS AT THIS TIME
--- NOTE | 2017-01-13 21:00 | NUR ---
ADM 2100 MEDS, PAIN MED AND BENADRYL, WITH FRESH H20, PT DENIES FURTHER NEEDS, BED IN LOW POSITION, SIDE RAILS X 2, CALL LIGHT IN REACH
--- NOTE | 2017-01-13 22:30 | NUR ---
PT RESTING WITH EYES CLOSED, RESP QUIET, NO DISTRESS NOTED, LEFT UNDISTURBED AT THIS TIME
--- NOTE | 2017-01-14 00:02 | NUR ---
PT RESTING WITH EYES CLOSED, RESP QUIET, NO DISTRESS NOTED, LEFT UNDISTURBED AT THIS TIME
--- NOTE | 2017-01-14 01:15 | NUR ---
PT SHIPYARD PAINTER APPRENTICE LIGHT, PT UP TO BR VIA WC WITH ASSISTANCE, PT VOIDED BY SELF WITH NO DIFFICULTY, PT TO SINK TO WASH HANDS, PT BACK TO BED, LEFT ARM AND LEG ELEVATED, PT DENIES FURTHER NEEDS OR PAIN, BED IN LOW POSITION, SIDE RAILS X 2, CALL LIGHT IN REACH
--- NOTE | 2017-01-14 03:38 | NUR ---
PT RESTING WITH EYES CLOSED, RESP QUIET, NO DISTRESS NOTED, LEFT UNDISTURBED AT THIS TIME, BED IN LOW POSITION, SIDE RAILS X 2, CALL LIGHT IN REACH
--- NOTE | 2017-01-14 04:35 | NUR ---
PT ELECTRONICS TECHNICIAN LIGHT, PT UP TO BR VIA WC WITH ASSISTANCE, PT TO COMMODE, VOIDED BY SELF WITH NO DIFFICULTY, DRAINAGE NOTED ON DRESSING AND SCRUB BOTTOMS, BOTTOMS REMOVED, PT BACK TO BED, THIS RN AND JOSE GUADALUPE CALDERÓN REMOVE DRESSING, INC LOOKS GOOD, NO DRAINAGE NOTED AROUND INC AT THIS TIME, NEW DRESSING PLACED, LEGS ELEVATED, PT REQUESTED AND SERVED FRESH H20, REQUESTS BENADRYL, BED IN LOW POSITION, SIDE RAILS X 2, CALL LIGHT IN REACH
--- NOTE | 2017-01-14 05:07 | NUR ---
ADM BENADBALDEMARL AND 0600 MED PER MD ORDERS, SEE EMAR, PT DENIES FURTHER NEEDS
--- NOTE | 2017-01-14 07:00 | NUR ---
SHFIT REPORT TO DAY SHIFT
--- NOTE | 2017-01-14 07:46 | NUR ---
PT RESTING IN BED WITH EYES OPEN CALL LIGHT IN REACH WILL MONITER
--- NOTE | 2017-01-14 13:58 | NUR ---
Received a call from [facility] with Dariela concerning a reversal of the denial for payment as the secondary insurance provider for Ms. Love. The Authorization number is [id number]. An update needs to be faxed to [phone] on 01/17/17. Ext. [phone] Reversal letter received and hand delivered to patient as well as a copy placed in the medical record. Stephanie Armas, SUPERVISOR COAL HANDLING Rehab Ore Grader
--- NOTE | 2017-01-14 15:24 | NUR ---
PT RESTING IN BED WITH EYES OPEN CALL LIGHT IN REACH WILL MONITER
--- NOTE | 2017-01-14 17:13 | NUR ---
PATIENT ADMITTED TO REHAB FROM ACUTE FLOOR. DR. CONTRERAS IS HER PCP, [facility] IS HER PHARMACY OF CHOICE. DME AT HOME: WHEELCHAIR AND BEDSIDE COMMODE. WILL CONTINUE TO FOLLOW WITH PATIENT
--- NOTE | 2017-01-14 17:29 | NUR ---
PT IN THERAPY GYM TOLERATING WELL WILL MONITER
--- NOTE | 2017-01-14 19:08 | NUR ---
RECIEVED UP IN BED WITH HOB ELEVATED AND SPOUSE AT BEDSIDE. DENIES ANY PAIN AT THIS TIME. PLEASANT AND TALKATIVE. CALL LIGHT AND OVERBED TABLE IN REACH.
--- NOTE | 2017-01-14 22:42 | NUR ---
REQUESTED PAIN MEDICATION FOR HIP EARLIER. MEDS GIVEN PER ORDERS. ASSISTED UP TO TOILET. REQUIRES MOD ASSIST. ASSISTED BACK TO BED. CALL LIGHT AND OVERBED TABLE IN REACH.
[2017-01-14 22:55] VITALS: BP 142/89
--- NOTE | 2017-01-15 00:41 | NUR ---
RESTING IN BED WITH EYES CLOSED. NO S/S OF DISTRESS OBSERVED. HOB ELEVATED. CALL LIGHT AND OVERBED TABLE IN REACH.
--- NOTE | 2017-01-15 02:20 | NUR ---
RESTING IN BED WITH EYES CLOSED. NO S/S OF DISTRESS OBSERVED. CALL LIGHT AND OVERBED TABLE IN REACH.
--- NOTE | 2017-01-15 04:00 | NUR ---
RESTINFG IN BED WITH EYES CLOSED. NO S/S OF DISTRESS OBSEVRED. CALL LIGHT AND OVERBED TABLE IN REACH.
[2017-01-15 05:52] LABS: BASOPHILS 0.4 % (0-2); EOSINOPHILS 6.4 % (0-7); HEMATOCRIT 40.8 % (36.0-48.0); HEMOGLOBIN 12.9 g/dL (12-16); IMMATURE GRANULOCYTES 0.2 % (0-5); MCHC 31.6 g/dL (31.0-37.0); MCV 85.5 fL (80.0-100.0); MEAN PLATELET VOLUME 9.8 fL (7.4-10.4); PLATELET COUNT 277 10x3/uL (130-400); RBC 4.77 10x6/uL (4.00-5.40); RDW 18.3 % (11.5-14.5); WBC 5.6 10x3/uL (4.8-10.8)
[2017-01-15 06:55] LABS: CALC OSMOLALITY 281 mosm/kg (275-300); CALCIUM 8.9 mg/dL (8.5-10.1); CARBON DIOXIDE 27.8 mmol/L (21.0-32.0); CHLORIDE - SERUM 106 mmol/L (98-107); CREATININE - SERUM 0.6 mg/dL (0.6-1.3); GLUCOSE 95 mg/dL (74-106); POTASSIUM - SERUM 4.1 mmol/L (3.5-5.1); SODIUM 142 mmol/L (136-145); UREA NITROGEN 10 mg/dL (7-18); eGFR NON AFRICAN AMERICAN > 90 mL/min (90-120)
--- NOTE | 2017-01-15 08:00 | NUR ---
AWAKE,BREAKFAST TRAY GIVEN.DENIES NEEDS.CL IN REACH.
[2017-01-15 08:01] VITALS: BP 129/56
[2017-01-15 14:04] VITALS: Ht 165.1 cm; Wt 61.2 kg
[2017-01-15 20:00] VITALS: BP 141/61
--- NOTE | 2017-01-15 21:05 | NUR ---
ASSUMED CARE AND REPORT FROM ADRIÁN SANDHU LPN
--- NOTE | 2017-01-15 22:08 | NUR ---
PT RESTING WITH EYES CLOSED, AROUSES TO SOFT VERBAL STIMUALTION, ASSESSMENT PER FLOW SHEET, ADM 2100 MEDS, PAIN MED AND BENADRYL PER MD ORDERS, SEE EMAR, WITH FRESH H20, PT DENIES FURTHER NEEDS AT THIS TIME
--- NOTE | 2017-01-15 23:00 | NUR ---
PT ROVING WINDER LIGHT, UP TO BR VIA WC WITH ASSISTANCE, PT TO COMMODE, VOIDED BY SELF WITH NO DIFFICULTY, PT TO WC, TO SINK TO WASH HANDS, PT BACK TO BED, LEFT ARM AND LEG ELEVATED, PT DENIES FURTHER NEEDS, BED IN LOW POSITION, SIDE RAILS X 2, CALL LIGHT IN REACH
--- NOTE | 2017-01-16 01:30 | NUR ---
PT RESTING WITH EYES CLOSED, RESP QUIET, NO DISTRESS NOTED, LEFT UNDISTURBED AT THIS TIME
--- NOTE | 2017-01-16 04:30 | NUR ---
PT MOTEL CLERK LIGHT, PT UP TO BR VIA WC WITH ASSISTANCE, PT TO COMMODE, VOIDED BY SELF WITH NO DIFFICULTY, PT TO SINK, WASHES 1 HAND, PT TO BED, LEFT SHOULDER AND LEG ELEVATED, PT C/O SLIGHT ITCHING, REQUESTS BENADRYL, INFORMED PT THAT I WILL BRING IT BACK AT 5 WITH PROTONIX, PT VERBALIZES UNDERSTANDING, DENIES FURTHER NEEDS AT THIS TIME, BED IN LOW POSITION, SIDE RAILS X 2, CALL LIGHT IN REACH
--- NOTE | 2017-01-16 05:05 | NUR ---
ADM BENADRYL AND 0600 MED PER MD ORDERS, SEE EMAR, PT DENIES NEED FOR PAIN MED AT THIS TIME
--- NOTE | 2017-01-16 06:44 | NUR ---
SHIFT REPORT TO DAY SHIFT
--- NOTE | 2017-01-16 08:00 | NUR ---
SHIFT ASSMT COMPLETED.DENIES NEEDS.
[2017-01-16 08:30] VITALS: BP 127/52
--- NOTE | 2017-01-16 16:00 | NUR ---
VISITING WITH FRIEND IN ROOM.
--- NOTE | 2017-01-16 19:13 | NUR ---
PT. UP IN W/C VISITING WITH SPOUSE. PT. REPORTS SHE IS GOING HOME TOMORROW AND IS EXCITING ABOUT LEAVING. NO VOICED NEEDS AT THIS AND HER CALL LIGHT IS WITHIN REACH.
--- NOTE | 2017-01-16 19:45 | NUR ---
PT IN BED WITH HOB UP FOR COMFORT. SIGNIFICANT OTHER AT BEDSIDE. ALERT & ORIENTED. N OO2. NO IV. D/C HOME TOMM. LEFT HIP ISLAND DRESSING. LEFT ARM AQUA CELL AG DRESSING. LEFT ARM IMMOBILIZER/SLING. STAND BY ASSIST. BED IN LOWEST POSITION AND CALL LIGHT WITHIN REACH.
[2017-01-16 20:31] VITALS: BP 138/56
--- NOTE | 2017-01-16 23:45 | NUR ---
PT IN BED WITH HOB UP FOR COMFORT. WATCHING TV. BED IN LOWEST POSITION AND CALL LIGHT WITHIN REACH.
--- NOTE | 2017-01-17 03:35 | NUR ---
PT LYING IN BED. EYES CLOSED. RESP. EVEN. BED IN LOWEST POSITION AND CALL LIGHT WITHIN REACH.
[2017-01-17 05:39] LABS: BASOPHILS 0.5 % (0-2); EOSINOPHILS 6.1 % (0-7); HEMATOCRIT 39.3 % (36.0-48.0); HEMOGLOBIN 12.4 g/dL (12-16); IMMATURE GRANULOCYTES 0.2 % (0-5); LYMPHOCYTES 31.5 % (15-50); MCH 27.3 pg (26.0-34.0); MCHC 31.6 g/dL (31.0-37.0); MCV 86.6 fL (80.0-100.0); MEAN PLATELET VOLUME 9.7 fL (7.4-10.4); MONOCYTES 7.5 % (2-11); NEUTROPHILS 54.2 % (40-80); PLATELET COUNT 318 10x3/uL (130-400); RBC 4.54 10x6/uL (4.00-5.40); WBC 5.8 10x3/uL (4.8-10.8)
[2017-01-17 05:48] LABS: CALC OSMOLALITY 274 mosm/kg (275-300); CALCIUM 8.8 mg/dL (8.5-10.1); CARBON DIOXIDE 30.8 mmol/L (21.0-32.0); CHLORIDE - SERUM 105 mmol/L (98-107); CREATININE - SERUM 0.6 mg/dL (0.6-1.3); GLUCOSE 97 mg/dL (74-106); POTASSIUM - SERUM 4.2 mmol/L (3.5-5.1); SODIUM 138 mmol/L (136-145); UREA NITROGEN 11 mg/dL (7-18); eGFR NON AFRICAN AMERICAN > 90 mL/min (90-120)
[2017-01-17 08:00] VITALS: BP 119/58
--- NOTE | 2017-01-17 08:00 | NUR ---
UP OOB TO BATHROOM WITH 4 PRONG CANE WITH SBA.VOIDED AND AMB TO WC;BREAKFAST GIVEN.PLAN TO DISCHARGE HOME TODAY.
[2017-01-17] MEDS ORDERED: HYDROCODONE-APA1 TAB PO (08:47)
--- NOTE | 2017-01-17 08:47 | RHP ---
PATIENT: DORA LARA MEDICAL RECORD: [id number] ACCOUNT: [id number] LOCATION:[facility] : 45 ADMISSION DATE: 01/10/17 REHABILITATION HISTORY AND PHYSICAL EXAMINATION POST ADMISSION PHYSICIAN EXAMINATION Post-Admission Physical Examination and History and Physical DATE OF ADMISSION: 01/10/2017 ADMITTING DIAGNOSES: Multiple major fractures involving the left femoral neck, the left humeral head and the left humeral neck. HISTORY OF PRESENT ILLNESS: The patient is a 71-year-old female patient admitted to inpatient rehab with major multiple fractures involving the left femoral neck, left humeral neck fracture and also a left humeral head fracture after a fall. She says she became dizzy and fell going down the step. She says that she has been having a lot of dizziness and her animal eviscerator at [facility] had scheduled her for nuclear stress test. She also complains of fatigue and weakness. Her left shoulder and left hip were noted to have pain, misalignment, stiffness, and joint swelling with decreased range of motion. On admission, she was noted to be anemic and tachycardic with an H&H of 6.7 and 22.6. Heme/Onc was consulted. She received a total of 4 units packed red blood cells preop and 2 units postop. X-ray of her left femur showed a left femoral neck fracture with impaction of the bone at the fracture site. X-ray of her shoulder showed a fracture of the left humeral head and neck, which was nondisplaced. On January 07, she went to the OR for bipolar left hip and left humeral nailing. Postop, she had a T-max of 100.6, constipation and confusion. A CT was negative for acute findings. She lives with her and was independent without aid for ADLs and mobility. Currently, she is mod to max assist for ADLs and mobility. Her mental status is back to her baseline per family. Plan is to return home with her at discharge. COMORBIDITIES: Include bipolar left hip surgery, status post left humeral nailing, anemia, iron deficiency anemia, hypokalemia, acute mental status changes, syncope, vertigo; coronary artery disease, status post CABG; fatigue, weakness, acute left hip pain and shoulder pain, carotid stenosis, recent fall with injury, postop fever and TIA. PAST MEDICAL HISTORY: Includes TIA in the past and cataracts. She has had a history of hypertension and coronary artery disease. PAST SURGICAL HISTORY: Includes coronary artery bypass grafting, partial hysterectomy, colon surgery. She has had a carotid endarterectomy. ALLERGIES: BEEF CONTAINING PRODUCTS AND ALSO PORK CONTAINING PRODUCTS. CURRENT MEDICATIONS: Include Cyclone 10/325 one tab q.6 hours p.r.n., Protonix 40 mg daily, ferrous sulfate 325 mg daily, polyethylene glycol 17 grams in 8 ounces of water daily b.i.d., Zofran 4 mg q.6 hours p.r.n., Colace 100 mg b.i.d., Benadryl 25 mg q.6 hours p.r.n., Eliquis 2.5 mg b.i.d. and she has got p.r.n. for MiraLax if needed. HABITS: No tobacco use. HISTORY AND PHYSICAL [id number] DORA LARA FAMILY HISTORY: Noncontributory. SOCIAL HISTORY: The patient hopes to return back home and get back to her prior level of functioning. REVIEW OF SYSTEMS: GENERAL: Does complain of weakness and fatigue. HEENT: She denies cold, cough, or congestion. CARDIOVASCULAR: Denies chest pain. LUNGS: No shortness of breath. PHYSICAL EXAMINATION: VITAL SIGNS: Stable, afebrile. GENERAL: Elderly female, who is in no acute distress, alert upon exam. HEENT: Normocephalic and atraumatic. Mucosa moist. NECK: Supple. No lymphadenopathy. LUNGS: Clear. HEART: Regular rate and rhythm. ABDOMEN: Benign. EXTREMITIES: Consistent with fractures and postop swelling is considered within normal limits. NEUROLOGIC: Intact. LABORATORY DATA: White count is 7.1, H&H of 15 and 44 and platelet count was noted to be 168. Her sodium is 136, potassium 3.6, BUN and creatinine of 11 and 0.6 and blood sugars is noted to be 119. ASSESSMENT: This is a 71-year-old female patient admitted to rehab with a working diagnosis of multiple fractures secondary to fall. The patient has potential to make improvement. We instituted the following multidisciplinary therapies including to, but not limited to physical, occupational, respiratory, speech, nutritional services, prosthetics and orthotics. Given her complex condition and risk for more complications, rehabilitation services cannot be provided at a low level of care such as a custodial facility. PLAN: 1. Admit to [facility] rehab for intensive inpatient therapy to include the following disciplines: A. Physical therapy to improve gait, all transfer skills and bed mobility to a modified independent level. B. Occupational therapy to improve activities of daily living to a modified independent level. C. Case management to assist with discharge planning and placement options. D. Nutrition to assist with nutritional needs. E. Rehabilitation nursing to assist in monitoring the patient's underlying medical conditions and to assist with any type of bowel or bladder management. 2. The patient's current medications and medical care will be continued. 3. The patient will be placed on standard fall precautions. 4. Watch her blood counts closely, reconsult Heme/Onc if needed. 5. We will discuss this patient during care team staff meeting this week. TRANSINT:[id number] Voice Confirmation ID: [id number] DOCUMENT ID: [id number] SHOAIB notes whether there has been none or any medical/functional HISTORY AND PHYSICAL [id number] DORA LARA A change since admission: - SHOAIB attests patient continues to be appropriate for IRF: - DONALD PENG MD at 0847 CC: [id number] DICTATION DATE: 01/11/17 1602 MEDICAL ASSISTANT: 01/11/17 1658 ADM IN [facility] [address] [place] [address]
--- NOTE | 2017-01-17 11:05 | NUR ---
PATIENT DISCHARGING HOME TODAY. [facility] WILL PROVIDE THERAPY AT HOME.[facility] WILL DELIVER A QUAD CANE TO PATIENT.DR. CONTRERAS 01/27/17 @ 2:30, DR. DORANTES 01/20/17 @ 2:15. PATIENT CHOICE FORMS FOR HOME HEALTH AND [facility] FORM SIGNED, EXPLAINED AND FILED IN CHART.
--- NOTE | 2017-01-17 12:00 | NUR ---
REVIEWED DISCHARGE MEDS AND INSTRUCTIONS;F/U APPTS WITH STATED UNDERSTANDING.WAITING ON SIGNIFICANT OTHER FOR PICK-UP.
--- NOTE | 2017-01-17 15:10 | NUR ---
DISCHARGED IN STABLE CONDITION WITH 4 PRONG CANE.MEDS CALLED TO PHARMACY.
--- NOTE | 2017-01-20 10:19 | NUR ---
LATE ENTRY: DISCHARGE CLINICALS FAXED TO [facility], [place] FAX # [phone] AUTH # [id number], ANNA MARIE MANUEL [phone], AUTH. # [id number] ID # [id number], WITH CONFORMATION RECIEVED
== END 2017-01-17 15:10 | disposition home health service (06) | DRG 561 ==
LOC: D.REHAB 19:29
PROVIDERS: ADMIT Emergency Medicine
DX: S72.002D Fracture of unspecified part of neck of left femur, subsequent encounter for closed fracture with routine healing (principal); S42.292D Other displaced fracture of upper end of left humerus, subsequent encounter for fracture with routine healing; W10.9XXD Fall (on) (from) unspecified stairs and steps, subsequent encounter; D50.9 Iron deficiency anemia, unspecified; E87.6 Hypokalemia; R41.82 Altered mental status, unspecified; R55 Syncope and collapse; R42 Dizziness and giddiness; I25.10 Atherosclerotic heart disease of native coronary artery without angina pectoris; Z95.1 Presence of aortocoronary bypass graft; R53.1 Weakness; R53.83 Other fatigue; I65.23 Occlusion and stenosis of bilateral carotid arteries

== ENCOUNTER 2017-09-15 09:55 | Day surgery (SDC) | payer MEDICARE, OTHER ==
[2017-09-12 10:05] LABS: HEMOGLOBIN 12.2 g/dL (12-16); MCH 31.9 pg (26.0-34.0); MCV 96.6 fL (80.0-100.0); MEAN PLATELET VOLUME 9.9 fL (7.4-10.4); RBC 3.83 10x6/uL (4.00-5.40); WBC 5.3 10x3/uL (4.8-10.8)
[~2017-09-15] VITALS: Ht 165.1 cm; Wt 59.9 kg
--- NOTE | ~2017-09-15 | OP ---
PATIENT NAME: DORA LARA MEDICAL RECORD: [id number] :45 LOCATION:[facility] ADMISSION DATE: SURGEON: RAKESH DORANTES MD DATE OF OPERATION: 09/15/2017 PREOPERATIVE DIAGNOSIS: Painful hardware, proximal humerus. POSTOPERATIVE DIAGNOSIS: Painful hardware, proximal humerus. PROCEDURE: Removal of painful hardware, deep. SURGEON: Rakesh Dorantes MD ANESTHESIA: General. GENERAL SURGERY PHYSICIAN ASSISTANT: Marybeth Martel. INTRAOPERATIVE COMPLICATIONS: None. SUMMARY OF PATHOLOGIC FINDINGS: Essentially, the patient had a very adherent plate. The plate albeit small in this very young lady's frame was causing some impingement with overhead abduction. OPERATIVE SUMMARY IN DETAIL: After obtaining the appropriate preoperative orthopedic surgery consent as well as anesthetic consultation, evaluation, and clearance, the patient was brought to the operating room and placed on operating table in supine position. After general laryngeal mask was administered, the patient was placed in beach chair position. All pressure points were well padded. She was held firmly to the operating table using the vacuum pack suction system. The patient's left upper extremity and shoulder were then prepped and draped in a routine sterile fashion. The arm was held in Trimano arm holding device. The previously utilized deltopectoral incision was utilized again, taken down to the level of clavipectoral fascia. Gentle release of adhesions of the deltoid from the plate were then followed by complete plate exposure. Serial and sequential removal of all screws were then followed by removal of the plate. Fluoroscopic guidance was used at the beginning and at the end. Radiographs were submitted to radiologist for final review. Wound was again copiously irrigated and closed using #1 Vicryl, followed by 2-0 Vicryl, followed by skin geronimo. Sterile dressings were applied. The patient was awakened and taken to the recovery room in stable condition. All final needle and sponge counts were correct. TRANSINT:[id number] Voice Confirmation ID: [id number] DOCUMENT ID: [id number] JOSE E DAHL, RAKESH MORALES at 0021 CC: [id number] DICTATION DATE: 09/15/17 1528 SHIRT BANDER: 09/15/171911 [facility] 09/15/17 [facility] [address] [place] [address]
[~2017-09-15 09:55] MED LIST changes: +HYDROCODONE-APA1 TAB PO
[2017-09-15 10:53] VITALS: BP 146/81; Ht 165.1 cm; Wt 59.9 kg
[2017-09-15] MEDS ORDERED: CIPRO500 MG PO (11:01)
[2017-09-15] MEDS ORDERED: HYDROCODONE-APA1 TAB PO (15:25)
== END 2017-09-15 17:45 | disposition home or self-care (01) ==
LOC: D.OPS 09:55
PROVIDERS: Anesthesiology
DX: T85.9XXS Unspecified complication of internal prosthetic device, implant and graft, sequela (principal); M25.512 Pain in left shoulder; I10 Essential (primary) hypertension; K21.9 Gastro-esophageal reflux disease without esophagitis; Z95.1 Presence of aortocoronary bypass graft; I25.10 Atherosclerotic heart disease of native coronary artery without angina pectoris; Z01.812 Encounter for preprocedural laboratory examination